=== PATIENT | female | born 1995 | race Caucasian/White ===

== ENCOUNTER 2022-04-30 16:53 | Outpatient (REF) | payer OTHER, SELFPAY ==
[2022-04-30 22:56] LABS: Bacteria Few HPF (Negative); C & S Indicated? C&S Done As Ordered; Crystals Negative HPF (Negative); Epithelial Cells Few HPF (Negative); Mucus Negative (Negative); RBC 0-2 HPF (0-2); WBC >50 HPF (0-5)
== END 2022-04-30 16:54 | disposition home or self-care (01) ==
LOC: LBN 16:53
PROVIDERS: Visit Provider Family Medicine
DX: R35.0 Frequency of micturition (principal)
CPT/HCPCS: 81015; 87086

== ENCOUNTER 2022-05-19 20:21 | Outpatient (REF) | payer BC, SELFPAY | END 2022-05-19 20:22 | disposition home or self-care (01) | LOC: NCHCN 20:21 | PROVIDERS: Visit Provider Family Medicine | DX: R35.0 Frequency of micturition (principal) | CPT/HCPCS: 87086 ==

== ENCOUNTER 2022-05-27 17:12 | Emergency (ER) | payer BC, SELFPAY ==
[2022-05-27 17:17] VITALS: BP 141/86; PULSE 115; RESP 20; TEMP 36.7; O2SAT 100
[2022-05-27] MEDS: LORazepam 0.5 MG TAB PO (17:52)
[2022-05-27] MEDS: fentaNYL 100 MCG/2 ML VIAL IM (18:18)
[2022-05-27] MEDS: LORazepam 1 MG TAB (18:37)
[2022-05-27] MEDS: Lidocaine 2% Jelly 11 ML SYR UR (18:37)
--- NOTE | 2022-05-27 19:06 | ED.GENADUL_ITS ---
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 listed below and return earlier should he have new or worsening complaints Referrals: Avis Medellin MD [ [facility] ST[facility]FF [facility]YSIC[facility]] - 1 day Discharge Data Discharge Date/Time-TO BE ENTERED AT DEPARTURE: 05/27/22 19:29 Medical Decision Making 26-year-old female who presents with breath sounds gland abscess, secondary to large abscess which is fluctuant and surrounding cellulitis, will perform incision and drainage Patient is afebrile and nontoxic although quite anxious For anxiolysis and pain control, 100 mcg of fentanyl and a milligram and a half of Ativan was ordered Urojet was applied Patient tolerated incision and drainage without incident Attempted place a Word catheter however patient could not tolerate placement and it was left to drain, approximately 30 cc of purulent material was drained from site and patient was placed on clindamycin secondary to surrounding cellulitis Low suspicion for sexually transmitted disease after long discussion with patient 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 HPI Narrative: This otherwise healthy 26-year-old female presents with abscess to pelvic region which started approximately 48 hours ago. She denies history of similar symptoms in the past, fever or chills. She has any urinary symptoms. She denies any risk of sexually transmitted disease. She denies any chance of . 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 PFSH All Active Problems (Updated 05/27/22 @ 19:08 by DANIEL Nicolas) Abscess of Bartholin's gland (Acute) Social History Smoking/Tobacco Use Status: Never Smoking risk assessment performed?: Yes Alcohol Intake: current Alcohol Intake frequency: holidays/special occasions only Drug use: Never Substance use type: does not use Do you feel safe at home: Yes Do you feel safe in your relationship?: Yes Exam Narrative Exam Narrative: Large 2 x 2 inch Bartholin cyst abscess with surrounding cellulitis involving labia majora Course Vital Signs Vital signs: Vital Signs Temperature 36.7 C 05/27/22 17:17 Pulse 115 H 05/27/22 17:17 Respiratory Rate 20 05/27/22 17:17 Blood Pressure 141/86 H 05/27/22 17:17 Pulse Oximetry 100 05/27/22 17:17 Temperature 36.7 C 05/27/22 17:17 Temperature Source Temporal Artery Scan 05/27/22 17:17 Pulse 115 H 05/27/22 17:17 Respiratory Rate 20 05/27/22 17:17 Respiratory Effort 05/27/22 17:20 Blood Pressure 141/86 H 05/27/22 17:17 Blood Pressure Position Sitting 05/27/22 17:17 Pulse Oximetry 100 05/27/22 17:17 Oxygen Delivery Method Room Air 05/27/22 17:17 Oxygen Flow Rate 0 05/27/22 17:17 Pain Level 10 05/27/22 17:28 Procedures Abscess I/D Site: Bartholin's Gland Side (if applicable): Left Sedation/analgesia: Other (Fentanyl and Ativan) Local Anesthetic: Lidocaine 1% Amount of anesthesia used (mL): 8 Technique: Incised with #11 Blade Amount of fluid expressed (mL): 30 Irrigation: Yes Packing used?: None PAWSS Have you Been Recently Intoxicated or Drunk Within the Last 30 days?: No Have you Ever Experienced Previous Episodes of Alcohol Withdrawal?: No Have you ever Experienced Withdrawal Seizures?: No Have you ever Experienced Delirium Tremens(DT)s?: No Have you ever undergone Alcohol Rehabilitation Treatment (i.e, inpt ot outpatient treatment programs)?: No Have you ever Experienced Blackouts?: No Have you ever Combined Alcohol with other Downers within the last 90 days?: No Have you ever Combined Alcohol with any other Substance of Abuse during the last 90 days?: No Result: 0
[2022-05-27] MEDS: Clindamycin 150 MG CAP, 12 CAPS/BTL 450 MG PO (19:14)
[2022-05-27 19:26] VITALS: BP 127/77; PULSE 99; RESP 18; O2SAT 100
--- NOTE | 2022-05-27 19:34 | NUR.NOTE ---
Referral faxed to [facility] for f/u of Barthalon Cyst within a week.Nursing Note:
== END 2022-05-27 19:29 | disposition home or self-care (01) ==
PROVIDERS: Emergency Provider Physician Assistant
DX: N75.1 Abscess of Bartholin's gland (principal)
CPT/HCPCS: 10060; 96372; J3010

== ENCOUNTER 2022-06-11 16:20 | Outpatient (REF) | payer BC, SELFPAY | END 2022-06-11 16:21 | disposition home or self-care (01) | LOC: LBN 16:20 | PROVIDERS: Visit Provider Obstetrics & Gynecology | DX: R10.2 Pelvic and perineal pain (principal) | CPT/HCPCS: 87480; 87510; 87660 ==

== ENCOUNTER 2022-08-12 12:47 | Emergency (ER) | payer BC, SELFPAY ==
[2022-08-12 13:03] VITALS: BP 145/92; PULSE 104; RESP 18; O2SAT 100
[2022-08-12 13:15] VITALS: BP 145/92; PULSE 104; RESP 18; O2SAT 100
[2022-08-12 13:18] VITALS: TEMP 37.5
--- NOTE | 2022-08-12 13:58 | ED.GENADUL_ITS ---
Discharge Plan Disposition Patient Disposition: Home Condition: Stable Discharge Details Clinical Impression: Abscess of left Bartholin's gland Primary Care Provider: Ayala Parks ED Provider: Bella Floyd Home Meds and New Rx's Prescriptions: Discontinued fluconazole 150 mg tablet 150 mg PO ONCE Qty: 1 0RF Patient Comments: not taking Rx Instructions: as a single dose No Action No Known Home Meds Discharge Instructions Instructions: Abscess (ED), Bartholin Cyst (ED), Incision and Drainage (ED) Additional Instructions: You had incision and drainage of your Bartholin's gland abscess today. Alternate tylenol and motrin as needed and directed for pain. Soak the area in a warm bath 2-3 times daily to continue to help with drainage. Avoid shaving or any sexual activity until follow-up with gynecology in the next 1 to 2 weeks. Return immediately to the emergency department if you develop any worsening or new concerning symptoms such as fever, worsening pain, redness, swelling or any other concerns. [place] [facility] [place] Krista Ruiz MD [ [facility] ST[facility]FF PHYSICIAN] - Discharge Data Discharge Date/Time-TO BE ENTERED AT DEPARTURE: 08/12/22 15:43 Discharge Physician: Bella Floyd Medical Decision Making 26-year-old female with history of Bartholin's gland abscess with incision and drainage in May 2022 presents with concern for return of abscess with complaint of left labial pain and swelling since yesterday morning, getting progressively worse. Patient appears fairly comfortable and nontoxic. She is afebrile. She has a 2 x 2 centimeter area of tenderness and fluctuance noted in the left posterior la bial minora. There is no obvious drainage noted. Case discussed with Dr. Ruiz who is happy to evaluate patient in the ED. She discussed with patient at bedside that as this is a recurrence of her abscess, a Word catheter would be recommended and patient is agreeable. Dr. Laurent performed an I&D at bedside with removal of purulent drainage. She attempted to place a Word catheter but it appears that due to the smaller size of the cyst cavity, she was unable to fully insert the catheter and inflate the balloon. Please see her procedure note for further details. Patient discussed that this was the issue with her previous abscess as they were unable to inflate the catheter at that time due to the small size of the cavity. Dr. Ruiz is recommending warm soaks to continue to help with drainage. She will follow-up with patient in the office for reevaluation in the next 1 to 2 weeks. No indication for antibiotics. [facility] on [facility] list for follow-up. Usual and customary return precautions given prior to discharge. Medical Records Medical records reviewed: Yes I reviewed the patient's medical records. HPI General Mode of arrival: ambulatory . Date/Time Provider Initiated Documentation: 08/12/22 13:38 . Limitations to Documentation: no limitations . Information obtained by: patient . HPI Narrative: Patient is a 26-year-old female who presents with concern for return of Ba rtholin's abscess since yesterday. Patient states she noticed yesterday morning that she had a small pea-sized area of pain and swelling and within her left labia minora. She states since then the area has increased in size and pain and is now approximately the size of an olive. She has not done any warm soaks and has not noticed any drainage or bleeding. She denies any fever, chills or body aches. Patient states she was seen here in May for a Bartholin's abscess which she reports was drained in the ED and then followed up with [facility]. Patient states she was frustrated as she states several of her follow-up appointments were rescheduled. She also states she was referred for pelvic PT but she was unsure of the reason. She states she did not contact [facility] to determine a cause for the referral for pelvic PT. She reports that the physical therapist at [facility] was unsure of why she was referred to them as well. 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 Review of Systems All systems reviewed & are unremarkable except as noted in HPI and below Constitutional Constitutional: Reports as per HPI, Denies chills and Denies fever(s) Eyes Eyes: Denies blurry vision ENT Ears, Nose, Mouth, and Throat: Denies dizziness, Denies sore throat and Denies throat swelling Cardiovascular Cardiovascular: Denies chest pain and Denies dyspnea Respiratory Respiratory: Denies cough and Denies dyspnea Gastrointestinal Gastrointestinal: Denies abdominal pain, Denies diarrhea and Denies vomiting Genitourinary Genitourinary: Denies hematuria and Denies dysuria Comments: Left vaginal pain and swelling Musculoskeletal Musculoskeletal: Denies back pain and Denies numbness Integumentary/Breasts Skin/Breast: Denies lesions and Denies rash Neurologic Neurologic: Denies dizziness, Denies localized weakness and Denies numbness Allergic/Immunologic Allergic/Immunologic: Denies throat swelling PFSH All Active Problems (Updated 08/12/22 @ 15:35 by Bella Floyd DO) Pelvic pain (Acute) Abscess of left Bartholin's gland (Acute) Medical History Presence of IUD Surgical History (Updated 06/11/22 @ 13:36 by Mahnaz Krueger) [place] teeth removed Social History Smoking/Tobacco Use Status: Never Smoking risk assessment performed?: Yes Alcohol Intake: current Alcohol Intake frequency: holidays/special occasions only Drug use: Never Substance use type: does not use Do you feel safe at home: Yes Do you feel safe in your relationship?: Yes Female Reproductive History Menstrual Age of Menarche: 12 Duration of menses: other (3-60 days) control method: progestin IUCD History History 0 Para Hx # Term Pregnancies Multiple births Hx # Pregnancies Ectopic pregnancies AB induced Hx Number of Living Children AB spontaneous Exam Const General: cooperative, healthy appearing and no acute distress Orientation: alert, awake and oriented x3 HENMT Head: normal to inspection Mouth: oral mucosae normal Eyes General: appearance normal, both eyes and all related structures Neck Neck: normal visual inspection Resp Effort & Inspection: normal respiratory effort and able to speak in complete sentences Cardio Rate: regular rate Female genitals images: 1. 2 x 2 centimeter area of edema, fluctuance and tenderness palpation noted to the left posterior labia minora. No drainage noted. No significant surrounding cellulitis noted. Skin General skin exam: no rashes or lesions noted Neuro General: patient alert, patient awake and patient oriented x3 Motor: muscle tone normal throughout Extrem General: normal to inspection and full ROM Psych Appearance: grossly normal Affect: normal affect Course Vital Signs Vital signs: Vital Signs Pulse 104 H 08/12/22 13:03 Respiratory Rate 18 08/12/22 13:03 Blood Pressure 145/92 H 08/12/22 13:03 Pulse Oximetry 100 04/05/23 13:03 Temperature 99.5 F 08/12/22 13:18 Temperature Source Tympanic 08/12/22 13:18 Pulse 104 H 08/12/22 13:15 Respiratory Rate 18 08/12/22 13:15 Respiratory Effort Normal, Non-Labored 08/12/22 13:05 Blood Pressure 145/92 H 08/12/22 13:15 Pulse Oximetry 100 08/12/22 13:15 Oxygen Delivery Method Room Air 08/12/22 13:15 Oxygen Flow Rate 0 08/12/22 13:15 PAWSS Have you Been Recently Intoxicated or Drunk Within the Last 30 days?: No Have you Ever Experienced Previous Episodes of Alcohol Withdrawal?: No Have you ever Experienced Withdrawal Seizures?: No Have you ever Experienced Delirium Tremens(DT)s?: No Have you ever undergone Alcohol Rehabilitation Treatment (i.e, inpt ot outpatient treatment programs)?: No Have you ever Experienced Blackouts?: No Have you ever Combined Alcohol with other Downers within the last 90 days?: No Have you ever Combined Alcohol with any other Substance of Abuse during the last 90 days?: No Positive Blood Alcohol level on Presentation? [PCS.BAL]: No Evidence of Increased Autonomic Activity (i.e. HR>120, tremor, sweating, agitation, nausea)?: No Result: 0
[2022-08-12 15:31] VITALS: BP 133/84; PULSE 91; RESP 16; O2SAT 100
--- NOTE | 2022-08-12 17:12 | W.PROCNOTE ---
Date of service: 08/12/22 Time of Service: 03:00 Procedure Note Date of procedure: 08/12/22 Procedure: Incision and drainage of Bartholin cyst Surgeon/Proceduralist/Physician: Krista Ruiz Procedure Indications: Recurrent Bartholin cyst. Due to it's small size pt was given the option of conservative management with sitz baths vs I&D with attempted Word catheter placement and she opted for the latter. Procedure Description: The area was cleansed with betadyne, then injected with <1ml of lidocaine with epinephrine. An 11 blade was used to incise the cyst. A small amount of pus was expressed. The cyst cavity was irrigated with saline and loculations were broken up with a hemostat. An attempt was made to place a Word catheter but the cyst cavity was too small. The patient tolerated the procedure well. She was instructed on sitz baths and f/u in 1-2 weeks.
== END 2022-08-12 15:43 | disposition home or self-care (01) ==
PROVIDERS: Emergency Provider Physician Assistant; PCP Nurse Practitioner Family
DX: N75.1 Abscess of Bartholin's gland (principal)
CPT/HCPCS: 56420; 99283

== ENCOUNTER 2022-08-25 12:24 | Outpatient (REF) | payer BC, SELFPAY ==
--- NOTE | 2022-08-25 11:30 | PAPFT_PTH ---
PATIENT: Olive Chicas LOC: [facility] U#:[id number] AGE/SX: 26/F ROOM: RE08/25/[address]: Krista Ruiz MD : 1995 BED: DIS: 08/25/2022 SPEC #: [id number] RECD: 08/25/22 13:00 STATUS: ZAIRE RERichard #: [id number] BELLA: 08/25/22 11:[address]: Krista Ruiz DEPT: [facility] Cytology RECD BY: Yessy Cantu ENTERED: 08/25/22 13:00 SP TYPE: PAPFT OTHR DR: Ayala Parks Tissues: 1 - CX/ENDOCX FOR PAP SMEARS Procedures: PAP THIN PREP/UVM Screening HPV DNA PROBE Comments: [id number] (HPV 16 & 18/45)
== END 2022-08-25 12:25 | disposition home or self-care (01) ==
LOC: LBN 12:24
PROVIDERS: PCP Nurse Practitioner Family; Visit Provider Obstetrics & Gynecology
DX: Z12.4 Encounter for screening for malignant neoplasm of cervix (principal); R87.610 Atypical squamous cells of undetermined significance on cytologic smear of cervix (ASC-US); Z11.51 Encounter for screening for human papillomavirus (HPV); R87.810 Cervical high risk human papillomavirus (HPV) DNA test positive
CPT/HCPCS: 88142; 87624

== ENCOUNTER 2022-09-30 02:11 | Outpatient (CLI) | payer BC, SELFPAY ==
--- NOTE | 2022-09-30 | DI.MRI_ITS ---
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 Contrast injected sequences were performed following IV injection of 16 cc of Dotarem. COMPARISON: DOC,MR MR ABDOMEN WWO CONTRAST from 10/13/2021 FINDINGS: VISUALIZED LUNG BASES: No pleural effusions evident. There is no ascites evident. LIVER: Again noted is the previously described solitary right hepatic lobe lesion which is again unch anged in size configuration, and unchanged signal characteristics and enhancement characteristics. N on centripetal rapid persistent enhancement again noted. There are no new additional lesions in the liver. BILIARY: There is no obvious gallbladder pathology. The CBD is not dilated. PANCREAS: There is no evidence of pancreatic mass nor dilatation of the pancreatic duct. SPLEEN: Spleen is not enlarged and there are no intrasplenic lesions.Splenic and portal veins are pat ent ADRENALS: There are no significant adrenal masses. KIDNEYS: No solid renal masses. No hydronephrosis.No cysts evident. ABDOMINAL AORTA: Not enlarged and there is no significant para-aortic adenopathy OSSEOUS: There are no lytic osseous lesions in the field of view of this study. IMPRESSION: 1. Continued stable appearance of the previously described solitary right hepatic lobe lesion, unchan ged from MRI scans dating back to 03/14/2021 and most likely a benign probable adenoma in this female age group. Correlation with clinical history including control pills recommended. DATA REPOSITORY:
[2022-09-30] MEDS: Normal Saline - Diluent 50 ML VIAL 25 ML IJ (08:06)
[2022-09-30] MEDS: Gadoterate meglumine 20 ML VIAL 16 ML IVP (08:07)
== END 2022-09-30 02:31 ==
LOC: DI 02:11
PROVIDERS: PCP Nurse Practitioner Family; Visit Provider Nurse Practitioner Family
DX: D13.4 Benign neoplasm of liver (principal)
CPT/HCPCS: 74183

== ENCOUNTER 2023-09-07 14:40 | Outpatient (REF) | payer BC, SELFPAY ==
--- NOTE | 2023-09-07 12:30 | PAPFT_PTH ---
PATIENT: Olive Chicas LOC: [facility] U#:[id number] AGE/SX: 28/F ROOM: RE09/07/[address]: Ayala Parks : 1995 BED: DIS: 09/07/2023 SPEC #: [id number] RECD: 09/08/23 13:05 STATUS: ZAIRE RERichard #: [id number] BELLA: 09/07/23 12:[address]: Ayala Parks DEPT: [facility] Cytology RECD BY: Yessy Cantu Tissues: 1 - CX/ENDOCX FOR PAP SMEARS Procedures: PAP THIN PREP/UVM Screening HPV DNA PROBE Comments: [id number] (CHLAMYDIA/GC)
[2023-09-09 16:16] LABS: Chlamydia Result Negative (Negative); GC Result Negative (Negative)
== END 2023-09-07 14:41 | disposition home or self-care (01) ==
LOC: NCHCN 14:40
PROVIDERS: PCP Nurse Practitioner Family; Visit Provider Nurse Practitioner Family
DX: Z01.419 Encounter for gynecological examination (general) (routine) without abnormal findings (principal); Z12.4 Encounter for screening for malignant neoplasm of cervix
CPT/HCPCS: 87491; 87591; 88142; 87624

== ENCOUNTER → 2023-09-21 03:02 | Outpatient (CLI) | payer BC, SELFPAY ==
--- NOTE | 2023-09-21 | DI.MAMMO_ITS ---
Exam(s) US BREAST RT COMPLETE MG MAMMO DIAGNOSTIC BI EXAM: MG MAMMO DIAGNOSTIC BI AND COMPLETE RIGHT BREAST ULTRASOUND CLINICAL HISTORY: N63.10 Lump in Rt breast, unspecified quadrant, Mother HX BRST CA age 32. TECHNIQUE: BILATERAL CC AND MLO mammographic images were obtained with 3D tomosynthesis technique an d utilizing computer aided detection (CAD). Also performed complete right breast ultrasound including all 4 quadrants as well as the right axilla . COMPARISON: This is the 1st study of this 28-year-old patient who has examining provider thought mauricio t she felt a lump in the right breast. The patient does not feel the lump. However, there is a sign ificant family history of breast cancer including her biological mother who was diagnosed at age 30. FINDINGS: Diagnostic bilateral mammogram: The fibroglandular tissue pattern is moderately dense which somewhat decreases sensitivity mammogram for finding hidden underlying lesions. There are no obvious spiculated masses nor malignant-appearing microcalcification groups in either br east. There is no significant architectural distortion or skin thickening-traction. COMPLETE RIGHT BREAST ULTRASOUND: No evidence of solid or significant cystic lesions in all 4 quadrants. Scanning of the right axilla is negative for adenopathy. IMPRESSION: 1. Dense bilateral fibroglandular tissue. No obvious radiographic evidence of malignancy. 2. Negative complete right breast ultrasound. The patient was informed of the findings and follow-up recommendations by myself prior to leaving the department today. BI-RADS Category 1 - Negative Breast Density - Category C - Heterogeneously dense Breast density Category C or D implies that the patient has dense breast tissue. Dense breast tissue can make it harder to find cancer on a mammogram. Dense breast tissue is also associated with an incr eased risk of breast cancer. This information about the result of the mammogram report was provided to the patient to raise their awareness. Use this report when you speak with the patient about their risks for breast cancer, which includes their family history. At that time, you may recommend additional screening tests (Ultrasoun d or MRI) as these tests may add significant information. A negative radiographic report should not delay biopsy if a dominant or clinically suspicious mass is present. Up to ten percent of cancers are not identified on mammography. A negative report may reinforce clinical impression. Adenosis and dense breasts may obscure an underlying neoplasm. False positive reports average 6 to 10%. Patient will receive a letter notifying them of these results.
--- NOTE | 2023-09-21 | DI.MRI_ITS ---
Exam(s) MR ABDOMEN WO/W EXAM: MR ABDOMEN WO/W CLINICAL HISTORY: D13.4 Benign neoplasm of liver TECHNIQUE: Multiplanar multisequence MRI was performed with both pre and post contrast infused seque nces. Contrast injected sequences were performed following IV injection of 16 cc of Dotarem. COMPARISON: MR ABDOMEN WWO CONTRAST from 10/13/2021 MR MR ABDOMEN WO/W from 09/30/2022 FINDINGS: VISUALIZED LUNG BASES: No pleural effusions evident. There is no ascites evident. LIVER: The previously described solitary non cystic lesion in the right hepatic lobe is again noted, again unchanged in size and signal characteristics and remaining a solitary lesion in the liver. Is again noted to be rapidly enhancing in uniform fashion without centripetal enhancement pattern of a t ypical hemangioma. No additional lesions in the liver on today's study. Lesion measures approximate ly 1.9 cm wide by 1.4 cm AP by 1.4 cm craniocaudal. BILIARY: There is no obvious gallbladder pathology. The CBD is not dilated. PANCREAS: There is no evidence of pancreatic mass nor dilatation of the pancreatic duct. SPLEEN: Spleen is not enlarged and there are no intrasplenic lesions.Splenic and portal veins are pat ent ADRENALS: There are no significant adrenal masses. KIDNEYS: No solid renal masses. No hydronephrosis.No cysts evident. ABDOMINAL AORTA: Not enlarged and there is no significant para-aortic adenopathy. ANTERIOR ABDOMINAL WALL/GI: There is no evidence of significant anterior abdominal wall hernia in the field of view of this study.Is no evidence of obvious bowel obstruction. OSSEOUS: There are no lytic osseous lesions in the field of view of this study. IMPRESSION: 1. There is continued stable appearance of the previously described solitary right hepatic lobe lesio n, again unchanged from prior MRI scans dating back to 03/14/21 and probably representing a benign ad enoma in this female age group. Correlation with clinical history including control pills hellen mmended. 2. No new findings in the abdomen evident. DATA REPOSITORY:
[2023-09-21] MEDS: Normal Saline - Diluent 50 ML VIAL 25 ML IJ (09:06)
[2023-09-21] MEDS: Gadoterate meglumine 20 ML VIAL 16 ML IVP (09:07)
== END ==
PROVIDERS: PCP Nurse Practitioner Family; Visit Provider Nurse Practitioner Family
DX: Z12.31 Encounter for screening mammogram for malignant neoplasm of breast (principal); N63.12 Unspecified lump in the right breast, upper inner quadrant
CPT/HCPCS: 74183; 76642; 77062; 77066; G0279

== ENCOUNTER 2023-12-28 01:20 | Outpatient (CLI) | payer BC, MEDICAID, SELFPAY ==
--- NOTE | 2023-12-28 | DI.NM_ITS ---
Exam(s) NM HEPATOBILIARY CCK GRP EXAM: NM HEPATOBILIARY CCK GRP CLINICAL HISTORY: Abd pain, R10.9. TECHNIQUE: Injected dose: 4.8 mCi Tc-99 mebrofenin Initial dynamic images: 60 minutes Post-Gallbladder fillin.02 mcg/kg CCK intravenously over a 30min infusion. Additional images: 30 minute dynamic during CCK administration. COMPARISON: US US ABDOMEN LIMITED from 11/26/2023 FINDINGS: Normal hepatic transit time. Prompt excretion into the small bowel. Prompt excretion into the gallbladder. Gallbladder ejection fraction: 91 percent, in the normal range. Patient experienced central and le ft-sided pain with CCK infusion. IMPRESSION: 1. Normal gallbladder ejection fraction of 91 percent.. SN guidelines: Gallbladder visualization should be present by 3 hours. Delayed [id number] garcia sit beyond 60 min raises the suspicion for partial common bile duct (CBD) obstruction. Gallbladder ejection fraction <35% has a good correlation with acalculous disease (i.e., chronic acal culous cholecystitis, cystic duct syndrome, sphincter of Oddi disease).
[2023-12-28] MEDS: Sincalide 5 MCG VIAL 1.2 MCG IJ (11:20)
== END 2023-12-28 01:40 ==
PROVIDERS: PCP Nurse Practitioner Family; Visit Provider Nurse Practitioner Family
DX: R10.9 Unspecified abdominal pain (principal)
CPT/HCPCS: 78227; J2805

== ENCOUNTER 2024-04-14 13:51 | Outpatient (REF) | payer BC, SELFPAY ==
[2024-04-14 15:10] LABS: ALT 22 U/L (14-59); AST 15 U/L (15-37); Albumin 4.1 g/dL (3.4-5.0); Alkaline Phosphatase 86 U/L (46-116); Anion Gap 7.5 mmol/L (3-11); BUN 8 mg/dL (7-18); Bilirubin, Total 0.53 mg/dL (0.2-1.0); CO2 29.5 mmol/L (21.0-32.0); CREATININE 0.8 mg/dL (0.55-1.02); Calcium 9.6 mg/dL (8.5-10.1); Chloride 106 mmol/L (98-107); Estimated GFR 104.15 (mL/min/1.73m2); Glucose 80 mg/dL (74-106); Potassium 4.3 mmol/L (3.5-5.1); Sodium 143 mmol/L (136-145); Total Protein 7.7 g/dL (6.4-8.2)
[2024-04-14 16:12] LABS: HCT 43.3 % (36.0-46.0); HGB 14.3 g/dL (11.2-15.7); MCH 27.9 pg (27.0-33.0); MCV 84 fL (80-95); MPV 9.7 fL (8.0-11.0); Platelet Count 377 10^3/uL (130-400); RBC 5.13 10^6/uL (3.93-5.22); RDW-SD 36.4 fL; WBC 7.18 10^3/uL (4.4-10.8)
[2024-04-17 22:26] LABS: Galactose-alpha-1,3 IgE <0.10 kU/L (<0.70)
[2024-05-04 10:06] LABS: Result Summary Negative; Specimen Whole Blood
[2024-05-04 10:07] LABS: Result See Comments
[2024-05-04 10:08] LABS: Interpretation See Comments
[2024-05-04 10:09] LABS: Disclaimer See Comments
[2024-05-04 10:17] LABS: Method See Comments
[2024-05-05 15:34] LABS: Misc Referral (MAYO) See Comments
== END 2024-04-14 13:52 | disposition home or self-care (01) ==
LOC: NCHCN 13:51
PROVIDERS: PCP Nurse Practitioner Family; Visit Provider Nurse Practitioner Family
DX: Z80.3 Family history of malignant neoplasm of breast (principal); T78.1XXA Other adverse food reactions, not elsewhere classified, initial encounter; R10.9 Unspecified abdominal pain; N92.6 Irregular menstruation, unspecified
CPT/HCPCS: 80053; 81162; 85027; 86001; 86003

== ENCOUNTER 2024-04-27 09:43 | Outpatient (REF) | payer BC, MEDICAID, SELFPAY ==
[2024-05-16 10:16] LABS: Misc Referral (MAYO) See Comments
== END 2024-04-27 09:44 | disposition home or self-care (01) ==
LOC: NCHCN 09:43
PROVIDERS: PCP Nurse Practitioner Family; Visit Provider Nurse Practitioner Family
DX: Z12.31 Encounter for screening mammogram for malignant neoplasm of breast (principal); Z80.3 Family history of malignant neoplasm of breast
CPT/HCPCS: 81432

== ENCOUNTER 2024-05-11 04:28 | Outpatient (CLI) | payer MEDICAID, SELFPAY ==
--- NOTE | 2024-05-18 13:52 | W.NUTRFU ---
Date of service: 05/11/24 Time of Service: 10:00 Nutrition Note NOTE: Olive referred for nutrition visit today for food intolerance - significant pain and cramping specific to red meat and pork products. Gall bladder scan came back with nothing noted and ordered for food allergen profile test and alpha-gal IgE - waiting on results. Denies tick-borne illness. Pt BMI is currently ~36 and associated inflammation with metabolic obesity could be contributing? Pt denies any other associated food intolerances. We reviewed best strategy for now is to get more testing and work at avoidance of these food choices as they are no essential to her health. She is intrested in weight loss and we discussed actions to take to help with this and gave resources. Suggested trial of OTC digetstive enzymes - protease to see it this might help at all if she wants to challenge. ? stomach acid issue - could possibly consider gastric acid secretion test as well. Pt thanked me for resources and going over inormation with her. will remain available for folllow up at needed or desired - pt took my contact info. Time Spent in Nutritional Counseling and Treatment: 25 minutes
== END 2024-05-11 04:29 | disposition home or self-care (01) ==
LOC: DS 04:29
PROVIDERS: PCP Nurse Practitioner Family; Visit Provider Dietitian, Registered
DX: Z71.3 Dietary counseling and surveillance (principal)
CPT/HCPCS: 00123; 97802

== ENCOUNTER 2024-09-12 18:01 | Outpatient (REF) | payer MEDICAID, SELFPAY ==
--- NOTE | 2024-09-12 09:45 | PAPFT_PTH ---
PATIENT: Olive Chicas LOC: [facility] U#:[id number] AGE/SX: 29/F ROOM: RE09/12/[address]: Ayala Parks : 1995 BED: DIS: 09/12/2024 SPEC #: [id number] RECD: 09/12/24 18:19 STATUS: ZAIRE REQ #: [id number] BELLA: 09/12/24 09:[address]: Ayala Parks DEPT: [facility] Cytology RECD BY: Yessy Cantu Tissues: 1 - CX/ENDOCX FOR PAP SMEARS Procedures: PAP THIN PREP/[facility] Screening HPV DNA PROBE Comments: [id number] (HPV 16 & 18/45)
== END 2024-09-12 18:02 | disposition home or self-care (01) ==
LOC: LBN 18:01
PROVIDERS: PCP Nurse Practitioner Family; Visit Provider Nurse Practitioner Family
DX: Z00.00 Encounter for general adult medical examination without abnormal findings (principal); Z12.4 Encounter for screening for malignant neoplasm of cervix; Z01.419 Encounter for gynecological examination (general) (routine) without abnormal findings
CPT/HCPCS: 88142; 87624